=== PATIENT | male | born 1965 | race Caucasian/White ===

== ENCOUNTER → 2021-03-13 | Day surgery (SDC) | payer BC ==
[~2021-03-13] VITALS: Ht 190.5 cm; Wt 99.0 kg
[~2021-03-13] MED LIST: CRESTOR40 MG PO; FENO134C PO; HYDR12.58 PO; HYDROmorphone 2 MG/ML VIAL IVP PRN; IV RINGERS,LACTATED 1000ML 1,000 ML IV SCH; LIDOCAINE 2% PF 5 ML VIAL. ONE; LOSA-73 PO; MORPHINE SULFATE 2 MG/ML INJ. IVP PRN; OMEP20TA63 PO; POTA10TA12 PO; PROCHLORPERAZINE 10 MG/2 ML VIAL. IVP PRN; PROPOFOL 10 MG/ML (20ML) VIAL. IV ONE; fentaNYL PF VIAL 100 MCG/2 ML VIAL IVP PRN
[2021-03-13 08:36] VITALS: BP 138/88
[2021-03-13 10:08] VITALS: BP 113/71
--- NOTE | 2021-03-15 09:11 | PATHOLOGY ---
[facility] Accession Number: [id number] . 01 Material submitted: . PART A: rectum - RECTAL POLYP PART B: sigmoid colon - SIGMOID POLYP . 01 Clinical history: . CRC/ + HEME COLON + HEMOCCULT . 02 Diagnosis: A. Colorectal biopsy, rectal polyp: - Hyperplastic polyp. . B. Colon biopsies, sigmoid polyp: - Tubular adenoma. LBQ 03/14/2021 1530 Local . 02 Comment: There is no high grade dysplasia or evidence of malignancy. (JPM/db; 03/14/2021) . 02 Electronically signed: . Mustapha Low MD, Pathologist NPI- [id number] . 01 Gross description: . A. Received in formalin labeled "Skyler, Hal, rectal polyp" is a vargas-brown soft tissue fragment measuring 0.3 x 0.2 x 0.1 cm. The specimen is submitted entirely in A1. . B. Received in formalin labeled "Skyler, Hal, sigmoid polyp" are 2 vargas-brown soft tissue fragments measuring in aggregate 0.5 x 0.4 x 0.2 cm. The specimen is submitted entirely in B1. (JETT; 03/13/2021) JETT/JETT 03/13/2021 2216 Local . 02 Pathologist provided ICD-10: K62.1, D12.5 . 02 CPT . 514747, 559635 Specimen Comment: A courtesy copy of this report has been sent to [phone], [phone]- Specimen Comment: [id number] Specimen Comment: Report sent to / DR BUCK Performed at: [address], [place], [place] [id number] MD Zackary Carter MD Phone: [phone] Performed at: 02 [facility] [address] [place], [place] [id number] MD Mustapha Low MD Phone: [phone]
== END | disposition home or self-care (01) ==
LOC: ENDOS 07:52
PROVIDERS: ATTEND Internal Medicine Gastroenterology
DX: K92.2 Gastrointestinal hemorrhage, unspecified (principal); R19.5 Other fecal abnormalities; D12.5 Benign neoplasm of sigmoid colon; K63.89 Other specified diseases of intestine; K64.0 First degree hemorrhoids; I10 Essential (primary) hypertension; E78.00 Pure hypercholesterolemia, unspecified; K21.9 Gastro-esophageal reflux disease without esophagitis; M19.90 Unspecified osteoarthritis, unspecified site; Z90.49 Acquired absence of other specified parts of digestive tract; Z98.890 Other specified postprocedural states; Z87.891 Personal history of nicotine dependence; Z79.899 Other long term (current) drug therapy; Z72.89 Other problems related to lifestyle; Z88.8 Allergy status to other drugs, medicaments and biological substances; Z20.822 Contact with and (suspected) exposure to COVID-19
CPT/HCPCS: 45380; 45385; 87426; 88305; J2704